=== PATIENT | male | born 1955 | race Caucasian/White ===

== ENCOUNTER → 2018-12-19 | Outpatient (CLI) | payer BC ==
--- NOTE | 2018-12-19 09:36 | PCVCIMAG ---
APPROVED REPORT Study performed: 12/19/2018 07:58:34 EXAM: Comprehensive 2D, Doppler, and color-flow Echocardiogram Patient Location: Echo lab Status: routine BSA: 2.40 HR: 65 bpmBP: 132/82 mmHg Rhythm: NSR Other Information Study Quality: Adequate Risk Factors: Cardiac Risk Factors: HTN Indications Pre-Op Pulmonary Embolism 2D Dimensions IVSd: 16.55 (7-11mm) LVDd: 49.48 mm PWd: 13.76 (7-11mm)Ascending Ao: 41.59 (22-36mm) LVDs: 35.45 (25-40mm) Left Atrium: 44.54 (27-40mm) Aortic Root: 38.49 mm Volumes Left Atrial Volume (Systole) Single Plane 4CH: 111.40 mLSingle Plane 2CH: 99.64 mL LA ESV Index: 45.00 mL/m2 Aortic Valve AoV Peak Ankit.: 1.43 m/s AO Peak Gr.: 8.24 mmHgLVOT Max P.75 mmHg LVOT Max V: 1.09 m/s Mitral Valve E/A Ratio: 0.9 MV Decel. Time: 265.08 ms MV E Max Ankit.: 0.49 m/s MV A Ankit.: 0.57 m/s IVRT: 121.11 ms Pulmonary Valve PV Peak Ankit.: 0.88 m/sPV Peak Gr.: 3.07 mmHg Pulmonary Vein P Vein S: 0.28 m/sP Vein A: 0.30 m/s P Vein D: 0.46 m/sP Vein A Dur.: 124.6 msec P Vein S/D Ratio: 0.61 Tricuspid Valve TR Peak Ankit.: 2.75 m/s TR Peak Gr.: 30.15 mmHg TV Vmax: 0.57 m/s Left Ventricle The left ventricle is normal size. There is normal LV segmental wall motion. Moderate concentric left ventricular hypertrophy. Left ventricular systolic function is normal. The left ventricular ejection fraction is within the normal range. LVEF is 55-60%. Grade I - abnormal relaxation pattern. Right Ventricle The right ventricle is normal size. The right ventricular systolic function is normal. Atria Left atrium is moderately dilated. Right atrium is mildly dilated. Aortic Valve The aortic valve is minimally sclerotic Mild aortic regurgitation. There is no aortic valvular stenosis. Mitral Valve The mitral valve is normal in structure. There is no mitral valve regurgitation noted. No evidence of mitral valve stenosis. Tricuspid Valve The tricuspid valve is normal in structure. Mild tricuspid regurgitation with PAP of 35 mmHg. Pulmonic Valve The pulmonary valve is normal in structure. Mild pulmonic regurgitation. Great Vessels The aortic root is normal in size. Ascending aorta is dilated to 4.2 cm. IVC is normal in size and collapses >50% with inspiration. Pericardium There is no pericardial effusion. There is no pleural effusion. <Conclusion> Left ventricular systolic function is normal. There is normal LV segmental wall motion. LVEF is 55-60%. Mild diastolic dysfunction Left atrium is moderately dilated. The aortic valve is minimally sclerotic. Mild aortic regurgitation, no stenosis. The mitral valve is normal in structure. No mitral valve regurgitation. Mild tricuspid regurgitation with pulmnary artery pressure of 35 mmHg. Ascending aorta is dilated to 4.2 cm. There is no pericardial effusion.
== END | disposition home or self-care (01) ==
LOC: PCVCIMAG 08:10
PROVIDERS: ATTEND Internal Medicine
DX: Z01.818 Encounter for other preprocedural examination (principal); I08.3 Combined rheumatic disorders of mitral, aortic and tricuspid valves; I27.82 Chronic pulmonary embolism
CPT/HCPCS: 93306